=== PATIENT | male | born 1955 | race African-American/Black ===

== ENCOUNTER 2018-04-02 13:29 | Outpatient (CLI) | payer OTHER ==
--- NOTE | 2018-04-02 14:20 | XRay Report ---
Cervical spine 5 views: History: Cervical age. Findings: Normal height of vertebral bodies and intervertebral disc. Sclerotic articular surfaces with early cervical spondylosis. Normal prevertebral soft tissue. No fracture. Impression: Mild cervical spondylosis.
== END 2018-04-02 13:30 | disposition home or self-care (01) ==
LOC: XRAY 13:29
PROVIDERS: ATTEND Orthopaedic Surgery
DX: M47.892 Other spondylosis, cervical region (principal)
CPT/HCPCS: 72050